=== PATIENT | female | born 1965 | race Caucasian/White ===

== ENCOUNTER 2024-05-09 14:22 | Outpatient (AMB) | payer MEDICARE, MEDICAID, SELFPAY ==
--- NOTE | 2024-05-09 14:11 | A.OFFPC_ITS ---
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 Requesting either pain medicaiton or referral to pain management. State Auditor Required: No Allergies gabapentin Allergy (Severe, Verified 05/09/24 14:29) forgetful topiramate Allergy (Severe, Verified 05/09/24 14:29) metabolic acidosis erythromycin base Allergy (Mild, Verified 05/09/24 14:29) Hives Medication List - Last Reconciled 05/09/24 by Leigh Shannon PA-C acetaminophen (Tylenol) 325 mg PO QID PRN clonazepam mg PO TID diphenhydramine HCl (Benadryl) 25 mg PO BID PRN fluoxetine 60 mg PO DAILY ibuprofen 200 mg PO Q6H PRN indomethacin 25 mg PO BID melatonin 3 mg PO BEDTIME PRN peg 3350-electrolytes 236-22.74-6.74 -5.86 gram (GaviLyte-G) mL PO DIRECTED sucralfate 1 g PO QID PRN temazepam mg PO BEDTIME Tobacco use date assessed: 05/09/24 Dental Screening Dental Screen Date: 05/09/24 Did you have a dental visit in the last 12 months?: No Did you have a dental problem in the last 6 months where you did not have access to dental care?: No Was dental information given to patient?: Patient declined (is changing dentists ) 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 She has many concerns today but her biggest concern is regarding pain management. Musculoskeletal: The patient has a complex history of chronic pain beginning in 2007 following major back surgery resulting in lumbar fusion. Subsequent surgeries include cervical fusion and surgeries on both thumbs with persistent osteoarthritis pain. She also had a spinal cord stimulator placed one year after her back surgery, and she reports a history of fibromyalgia. The patient had been maintained on [place] (hydrocodone/acetaminophen 10/325 mg) for pain 4 times a day, previously prescribed by Dr. Falcon, but she has been off this medication since March. The pain is significant, impacting daily living activities such as folding clothes and washing dishes, and is exacerbated by physical activity. She has experienced a deterioration of her relationship with her former primary care provider, Dr. Falcon, following missed appointments and a subsequent dispute regarding prescription refills. The patient's previous regimen of taking two tablets of [place] thrice daily was reportedly effective, and she attempted to stretch her prescriptions to last longer than dictated. In recent months, she has resorted to using high doses of Tylenol, resulting in significant frustration regarding pain management. GI: Reports a history of IBS and gerd and follows with Dr. Akers CV: has a history of POTS and orthostatic hypotension. Follows with Dr. Hdez. Pysch: Follows closely with behavioral health as she is managed with clonazepam, temazepam and fluoxetine. No SI / HI. Low-dose chest CT:The patient is motivated to address her nicotine use and has abstained from smoking for 72 hours prior to this visit. She acknowledges a history of smoking approximately a pack per day over 24 years and expresses int erest in lung cancer screening due to significant family history of lung cancer, and the recent of close family members. The patient also follows up on her risk for breast cancer, recalling her past treatment with tamoxifen and a breast neoplasm that was atypical. 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 Follows with Dr. Akers Health Maintenance - Discussed referral for lung cancer scr eening given significant smoking history and family history of lung cancer. - Planned [facility] for high-risk breast cancer management. - Referral considered for ENT and orthop edics. - Routine blood work including liver fun ction, kidney function, and electrolytes, cholesterol, and thyroid levels to be done. - Physical activity and lifestyle modifi cations encouraged. 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 - Significant life changes following inv oluntary unemployment since 2011. - Recently acquired personal transportat ion. - Reports housing environment contributi ng to daily antihistamine (Benadryl) use. - Reports nicotine use cessation efforts ; abstained from smoking for several days. - Family history of various cancers; emo tional impact from close familial deaths. Review of Systems - Musculoskeletal: Reports pain and cram ping in hands, neck, and back. - Gastrointestinal: Reports history of I rritable Bowel Syndrome. - Psychological: Reports anxiety and dep ressive disorders. - Respiratory: Reports congestion and st uffiness. Physical Exam General: Well developed, well nourished, in no acute distress. Appears stated age. Cardiac: RRR, no murmurs Lungs: clear, equal breath sounds Abdomen: soft, nontender, no CVA tenderness Extremities: no edema Neuro: alert, oriented x3, mood appropriate Plan - Initiate [place] hydrocodone/acetaminoph en 10/325 mg) at a reduced frequency of twice daily for chronic pain management to assess tolerance and efficacy. Discussed that I would not be comfortable increasing this. - Reinforce importance of medication com pliance and safety; limit acetaminophen intake to under 4000 mg per day to prevent potential liver damage. - Continue coordination with [facility] for ongoing evaluation of breast cancer risk and surveillance. - Conduct fasting blood work to evaluate liver and kidney function, complete blood count, metabolic panel, and thyroid function. - Referral for low-dose CT lung cancer s creening to address her smoking history and family cancer risk. - Continue psychiatric follow-up for anx iety and depressive disorders management, currently on clonazepam, fluoxetine, and temazepam. - Open discussion on further engagement with smoking cessation resources or pharmacotherapy options if needed. - Discussion of future follow-up appoint ment in 3-4 weeks for review of blood work results and reassessment of pain management plan. [facility] Surgical History (Updated 05/09/24 @ 15:05 by Leigh Shannon PA-C) History of back surgery Social History Housing: Apartment Patient Tobacco Use Status: Current someday Tobacco user (10 cigarettes a week) Years Smoked: 24 e-Cigarette/Vaping Use: Never Used Second Hand Smoke Exposure: Yes service: No Current occupational status: disabled Cognitive needs: No Hearing needs: No Vision needs: Yes (used to wear glasses, needs eyes checked.) Questionnaire Thrive Questionnaire Date Thrive assessed: 05/02/24 I am a: Patient What is your living situation today?: I have a place to live, but I am worried about losing it in the future Within the past 12 months, did the food you bought not last and you didn't have the money to get more?: Sometimes True Within the past 12 months, did you worry whether your food would run out before you got money to buy more?: Sometimes True Do you have trouble paying for medicines?: No Do you have trouble getting transportation to medical appointments?: No Do you have trouble paying your heating and electricity bill?: No Do you have trouble taking care of your child, family member or friend?: No Do you have trouble with day-to-day activities such as bathing, preparing meals, shopping, managing finances, etc.?: No Are you currently unemployed and looking for a job?: No Are you interested in more education?: No Please select the resources that you would like help with: Daily support THRIVE Score: 3 AUDIT C Alcohol Use Questionnaire (AUDIT-C) 1. How often do you have a drink containing alcohol?: Monthly or less 2. How many drinks containing alcohol do you have on a typical day when you are drinking?: 3 or 4 3. How often do you have six or more drinks on one occasion?: Never Total Score: 2 ROSHNI-7 AMB Questionnaire ROSHNI-7 Feeling nervous, anxious, or on edge: 1 = Several days Not being able to stop or control worryin = Several days Worrying too much about different things: 1 = Several days Trouble relaxin = Several days Being so restless that it is hard to sit still: 1 = Several days Becoming easily annoyed or irritable: 1 = Several days Feeling afraid as if something awful might happen: 1 = Several days Total ROSHNI-7 score (0-4 normal; 5-9 mild; 10-14 moderate; 15-21 severe): 7 Source: Developed by Drs. Mehul Chavira, Rosie Schwartz, Seng Muro and colleagues, with an educational adriano from [employer]. Physical exam (Primary Care) Tobacco/Smoking Status: Tobacco use Status Tobacco use date assessed 05/09/24 05/09/24 14:45 Patient Tobacco Use Status Current someday Tobacco (05/09/24 14:45 cigarettes a week) e-Cigarette/Vaping Use Never Used 05/09/24 14:45 Thrive Assessment: Date of Thrive Assessment Date Thrive assessed 05/02/24 05/09/24 14:12 Coding Level of Care Code New Pt Level 4 (83683) Complex EM visit Add On G2211 Diagnoses Generalized anxiety disorder with panic attacks F41.1; F41.0 Major depression, chronic F32.9 Tobacco abuse Z72.0 POTS (postural orthostatic tachycardia syndrome) G90.A Orthostatic hypotension I95.1 Chronic neck pain M54.2; G89.29 Chronic low back pain M54.50; G89.29 Dermatitis L30.9 Assessment & Plan Assessment & Plan (1) Generalized anxiety disorder with panic attacks: Code(s): F41.1 - Generalized anxiety disorder; F41.0 - Panic disorder [episodic paroxysmal anxiety] Category: Medical Plan: following with psychiatry (2) Major depression, chronic: Code(s): F32.9 - Major depressive disorder, single episode, unspecified Category: Medical Plan: as above (3) Tobacco abuse: Code(s): Z72.0 - Tobacco use Category: Medical Plan: recently quit low dose chest ct (4) POTS (postural orthostatic tachycardia syndrome): Code(s): G90.A - Postural orthostatic tachycardia syndrome [POTS] Category: Medical Plan: continue with cardiology (5) Orthostatic hypotension: Code(s): I95.1 - Orthostatic hypotension Category: Medical Plan: as above (6) Chronic neck pain: Code(s): M54.2 - Cervicalgia; G89.29 - Other chronic pain Category: Medical Plan: will continue norco (7) Chronic low back pain: Code(s): M54.50 - Low back pain, unspecified; G89.29 - Other chronic pain Category: Medical Plan: as above (8) Dermatitis: Code(s): L30.9 - Dermatitis, unspecified Category: Medical Plan . Orders: Orders Complete Blood Count Auto Diff Today F32.9 - Major depressive disorder, single episode, unspecified, F41.0 - Panic disorder [episodic paroxysmal anxiety], F41.1 - Generalized anxiety disorder, G89.29 - Other chronic pain, G90.A - Postural orthostatic tachycardia syndrome [POTS], I95.1 - Orthostatic hypotension, M54.2 - Cervicalgia, M54.50 - Low back pain, unspecified, Z72.0 - Tobacco use, Z98.1 - Arthrodesis status Comprehensive [place]. Panel Fast Today F32.9 - Major depressive disorder, single episode, unspecified, F41.0 - Panic disorder [episodic paroxysmal anxiety], F41.1 - Generalized anxiety disorder, G89.29 - Other chronic pain, G90.A - Postural orthostatic tachycardia syndrome [POTS], I95.1 - Orthostatic hypotension, M54.2 - Cervicalgia, M54.50 - Low back pain, unspecified, Z72.0 - Tobacco use, Z98.1 - Arthrodesis status TSH reflex Free T4 Today F32.9 - Major depressive disorder, single episode, unspecified, F41.0 - Panic disorder [episodic paroxysmal anxiety], F41.1 - Generalized anxiety disorder, G89.29 - Other chronic pain, G90.A - Postural orthostatic tachycardia syndrome [POTS], I95.1 - Orthostatic hypotension, M54.2 - Cervicalgia, M54.50 - Low back pain, unspecified, Z72.0 - Tobacco use, Z98.1 - Arthrodesis status Lipid Panel Today F32.9 - Major depressive disorder, single episode, unspecified, F41.0 - Panic disorder [episodic paroxysmal anxiety], F41.1 - Generalized anxiety disorder, G89.29 - Other chronic pain, G90.A - Postural orthostatic tachycardia syndrome [POTS], I95.1 - Orthostatic hypotension, M54.2 - Cervicalgia, M54.50 - Low back pain, unspecified, Z72.0 - Tobacco use, Z98.1 - Arthrodesis status Microalbumin, Random (w Creat) Today F32.9 - Major depressive disorder, single episode, unspecified, F41.0 - Panic disorder [episodic paroxysmal anxiety], F41.1 - Generalized anxiety disorder, G89.29 - Other chronic pain, G90.A - Postural orthostatic tachycardia syndrome [POTS], I95.1 - Orthostatic hypotension, M54.2 - Cervicalgia, M54.50 - Low back pain, unspecified, Z72.0 - Tobacco use, Z98.1 - Arthrodesis status Referrals Thoracic/General Surgery Referral F17.200 - Nicotine dependence, unspecified, uncomplicated, Z80.1 - Family history of malignant neoplasm of trachea, bronchus and lung Dermatology Referral L30.9 - Dermatitis, unspecified Medications: New hydrocodone-acetaminophen 10-325 mg Partial Fill upon patient request. 1 tab PO Q12H 28 days PRN 56 tabs 0RF pain
[2024-05-09 16:01] VITALS: BP 96/54; PULSE 83; RESP 12; O2SAT 98; BMI 23.8
--- OUTSIDE RECORDS SUMMARY | 2024-05-09 17:31 | XMS_ITS | Clinical Summary ---
Author Organization [facility] Address [address] [place] [id number] Care Team Providers Care Planer Setter Name Role Phone Miriam Falcon MD Primary Care Provider Social History Tobacco Use Types Packs/Day Years Used Date Smoking Tobacco: Never Assessed Sex and Gender Information Value Date Recorded Sex Assigned at Female 02/27/2023 9:54 AM EST Gender Identity Female 02/27/2023 9:54 AM EST Sexual Orientation Heterosexual (straight) 02/27 9:54 AM EST Plan of Treatment Health Maintenance Due Date Last Done Comments Hepatitis C Virus Screening 1965 HIV Screening 07/31/1980 DTaP/Tdap/Td Vaccines (1 - Tdap) 07/31/1986 Hepatitis B Vaccines (1 of 3 - 19+ 3-dose series) 07/31/1986 Pneumococcal Vaccines 50+ (1 of 1 - PCV) 07/31/2017 Zoster (Shingles) Vaccine (1 of 2) 07/31/2017 COVID-19 Vaccine ( - 2023-2 5 season) 2023 Pneumococcal Vaccine: Pediat jagruti (0-5 Years) and At-Risk Patients (6 to 49 Years) Aged Out No longer eligible b ased on patient's age to complete this topic Care Teams Planer Setter Relationship Specialty Start Date End Date Miriam Falcon MD [address] [place] [id number] PCP - General Medicine Hospitalist 04/13/23
--- OUTSIDE RECORDS SUMMARY | 2024-05-09 17:31 | XMS_ITS | Clinical Summary ---
Author Organization [facility] Address [address] [place] [address] Care Team Providers Care Director Supply Chain Name Role Phone Fred Falcon MD Primary Care Provider [phone] Encounters Date Type Department Care Team Description 02/13/2024 Telephone Gastroenterology - [address] [place] [address] Adry Iverson PA scheduling capsule endoscopy from Last 3 Months Social History Tobacco Use Types Packs/Day Years Used Date Smoking Tobacco: Never Assessed Comments Unknown Sex and Gender Information Value Date Recorded Sex Assigned at Not on file Legal Sex Female 2:46 PM EST Gender Identity Not on file Sexual Orientation Not on file Plan of Treatment Health Maintenance Due Date Last Done Comments Breast Cancer Screening 1965 DTaP,Tdap,and Td Vaccines (1 - Tdap) 07/31/1986 Hepatitis B Vaccines (1 of 3 - 19+ 3-dose series) 07/31/1986 Cervical Cancer Screening: P ap Smear 07/31/1988 Pneumococcal Vaccine: 50+ Ye ars (1 of 1 - PCV) 07/31/2017 Zoster Vaccines (1 of 2) 07/31/2017 Colorectal Cancer Screening: Colonoscopy 02/09/2022 Depression Screening 02/09/2022 HIV Screening 02/09/2022 Hepatitis C Screening 02/09/2022 Social Influencers of Health Screening 02/09/2022 COVID-19 Vaccine ( - 2023-2 5 season) 2023 Influenza Vaccine (#1) 2023 HIB Vaccines Aged Out No longer eligi ble based on patient's age to complete this topic HPV Vaccines Aged Out No longer eligi ble based on patient's age to complete this topic Hepatitis A Vaccines Aged Out No long er eligible based on patient's age to complete this topic IPV Vaccines Aged Out No longer eligi ble based on patient's age to complete this topic MMR Vaccines Aged Out No longer eligi ble based on patient's age to complete this topic Meningococcal ACWY Vaccine Aged Out N o longer eligible based on patient's age to complete this topic Meningococcal B Vacine Aged Out No lo nger eligible based on patient's age to complete this topic Pneumococcal Vaccine: Pediat rics (0 to 5 Years) and At-Risk Patients (6 to 64 Years) Aged Out No longer eligible b ased on patient's age to complete this topic RSV Immunization Patients Un jourdan 20 months Aged Out No longer eligible b ased on patient's age to complete this topic Varicella Vaccines Aged Out No longer eligible based on patient's age to complete this topic Care Teams Director Supply Chain Relationship Specialty Start Date End Date Fred Falcon MD PCP - General Internal Medicine 05/11/20
--- OUTSIDE RECORDS SUMMARY | 2024-05-09 17:31 | XMS_ITS ---
Author Name [facility] Organization Unknown Problems Problem Status Onset Date Problem Type Date of Resoluti on Source POTS (postural orthostatic tachycardia syndrome) active EncounterDiagnosisAct CCT
== END 2024-05-09 15:38 | disposition home or self-care (01) ==
PROVIDERS: PCP Physician Assistant; Visit Provider Physician Assistant
DX: F41.1 Generalized anxiety disorder (principal); F41.0 Panic disorder [episodic paroxysmal anxiety]; F32.9 Major depressive disorder, single episode, unspecified; Z72.0 Tobacco use; G90.A Postural orthostatic tachycardia syndrome [POTS]; I95.1 Orthostatic hypotension; M54.2 Cervicalgia; G89.29 Other chronic pain; M54.50 Low back pain, unspecified; L30.9 Dermatitis, unspecified

== ENCOUNTER → 2024-05-09 14:22 | Outpatient (BNVA) | payer MEDICARE, MEDICAID, SELFPAY | PROVIDERS: PCP Physician Assistant; Visit Provider Physician Assistant | DX: F41.1 Generalized anxiety disorder (principal); F41.0 Panic disorder [episodic paroxysmal anxiety]; F32.9 Major depressive disorder, single episode, unspecified; G90.A Postural orthostatic tachycardia syndrome [POTS]; I95.1 Orthostatic hypotension; M54.2 Cervicalgia; G89.29 Other chronic pain; M54.50 Low back pain, unspecified; L30.9 Dermatitis, unspecified; Z72.0 Tobacco use | CPT/HCPCS: 99202 ==

== ENCOUNTER 2024-06-06 10:47 | Outpatient (AMB) | payer MEDICARE, MEDICAID, SELFPAY ==
--- NOTE | 2024-06-06 10:49 | A.OFFPC_ITS ---
Vital Signs 06/06/24 10:52 BP 96/68 Blood Pressure Location Rt brachial Position Sitting Respiration 14 Pulse 98 Pulse Source Pulse Oximeter Pulse Oximetry (%) 100 Oxygen Delivery Method Room Air Intake Visit Reasons: csc, lab follow up Intake Note: Follow up. Was not able to get lab work. Automation Developer Required: No Allergies gabapentin Allergy (Severe, Verified 06/06/24 10:51) forgetful topiramate Allergy (Severe, Verified 06/06/24 10:51) metabolic acidosis erythromycin base Allergy (Mild, Verified 06/06/24 10:51) Hives Medication List - Last Reconciled 06/06/24 by Leigh Shannon PA-C acetaminophen (Tylenol) 325 mg PO QID PRN clonazepam mg PO TID diphenhydramine HCl (Benadryl) 25 mg PO BID PRN fluoxetine 60 mg PO DAILY hydrocodone-acetaminophen 10-325 mg 1 tab PO Q12H PRN 28 days ibuprofen 200 mg PO Q6H PRN indomethacin 25 mg PO BID melatonin 3 mg PO BEDTIME PRN peg 3350-electrolytes 236-22.74-6.74 -5.86 gram (GaviLyte-G) mL PO DIRECTED sucralfate 1 g PO QID PRN temazepam mg PO BEDTIME Tobacco use date assessed: 05/09/24 Dental Screening Dental Screen Date: 05/09/24 HPI csc, lab follow up HPI Details The patient is a 58-year-old female presenting today for a follow up. She is relatively new here. -forgot to do labs prior to appointment. States that she will do this today. Musculoskeletal: The patient has a complex history of chronic pain beginning in 2007 following major back surgery resulting in lumbar fusion. Subsequent surgeries include cervical fusion and surgeries on both thumbs with persistent osteoarthritis pain. She also had a spinal cord stimulator placed one year after her back surgery, and she reports a history of fibromyalgia. The patient had been maintained on Secondcreek (hydrocodone/acetaminophen 10/325 mg) for pain 4 times a day, previously prescribed by Dr. Falcon, but she has been off this medication since March. The pain is significant, impacting daily living activities such as folding clothes and washing dishes, and is exacerbated by physical activity. She has experienced a deterioration of her relationship with her former primary care provider, Dr. Falcon, following missed appointments and a subsequent dispute regarding prescription refills. The patient's previous regimen of taking two tablets of Secondcreek thrice daily was reportedly effective, and she attempted to stretch her prescriptions to last longer than dictated. In recent months, she has resorted to using high doses of Tylenol, resulting in significant frustration regarding pain management. GI: Reports a history of IBS and gerd and follows with Dr. Akers CV: has a history of POTS and orthostatic hypotension. Follows with Dr. Hdez. Pysch: Follows closely with behavioral health as she is managed with clonazepam, temazepam and fluoxetine. No SI / HI. Dealing with a lot of stress right now. Her 22 year old son is currently missing in [place]. She states he has gone off grid for 3 weeks but he has had no communication. She states that he has bipolar disorder and this is not necessarily uncommon for him but it is still worries for that she has not heard from him. Low-dose chest CT: Ordered at last visit. She acknowledges a history of smoking approximately a pack per day over 24 years and expresses interest in lung cancer screening due to significant family history of lung cancer Mammogram: Following with breast center and up-to-date- The patient also follows up on her risk for breast cancer, recalling her past treatment with tamoxifen and a breast neoplasm that was atypical. 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 colonoscopy: Completed in January 2024 and states WNL. Follows with Dr. Akers Bone density: ordered today [facility] Surgical History (Updated 05/09/24 @ 15:05 by Leigh Shannon PA-C) History of back surgery Social History Housing: Apartment Patient Tobacco Use Status: Current someday Tobacco user (10 cigarettes a week) Years Smoked: 24 e-Cigarette/Vaping Use: Never Used Second Hand Smoke Exposure: Yes service: No Current occupational status: disabled Cognitive needs: No Hearing needs: No Vision needs: Yes (used to wear glasses, needs eyes checked.) Questionnaire Thrive Questionnaire Date Thrive assessed: 05/02/24 I am a: Patient What is your living situation today?: I have a place to live, but I am worried about losing it in the future Within the past 12 months, did the food you bought not last and you didn't have the money to get more?: Sometimes True Within the past 12 months, did you worry whether your food would run out before you got money to buy more?: Sometimes True Do you have trouble paying for medicines?: No Do you have trouble getting transportation to medical appointments?: No Do you have trouble paying your heating and electricity bill?: No Do you have trouble taking care of your child, family member or friend?: No Do you have trouble with day-to-day activities such as bathing, preparing meals, shopping, managing finances, etc.?: No Are you currently unemployed and looking for a job?: No Are you interested in more education?: No Please select the resources that you would like help with: Daily support THRIVE Score: 3 Physical exam (Primary Care) Vital Signs: Last Vital Signs Pulse 98 06/06/24 10:52 Resp 14 06/06/24 10:52 BP 96/68 06/06/24 10:52 Pulse Ox 100 06/06/24 10:52 Oxygen Delivery Method Room Air 06/06/24 10:52 Tobacco/Smoking Status: Tobacco use Status Tobacco use date assessed 05/09/24 06/06/24 10:55 Patient Tobacco Use Status Current someday Tobacco (06/06/24 10:55 cigarettes a week) e-Cigarette/Vaping Use Never Used 06/06/24 10:55 Thrive Assessment: Date of Thrive Assessment Date Thrive assessed 05/02/24 06/06/24 10:55 Const Orientation/consciousness: patient oriented x3 HENMT Ears: hearing grossly normal bilaterally Neck Thyroid: Thyroid normal Lymphatic: no lymphadenopathy noted Resp Auscultation: clear to auscultation bilaterally Cardio Rate: regular rate Rhythm: regular rhythm Heart sounds: S1 normal heart sound present and S2 normal heart sound present GI Inspection: Yes normal to inspection Palpation (GI): Soft to palpation and Other GI palpation findings present (nontender, no cva tenderness) Auscultation: normoactive bowel sounds Rectal Exam - Female: deferred Skin General skin exam: no rashes or lesions noted Neuro General: patient oriented x3, gait normal and no focal motor deficits Coding Level of Care Code Est Pt Level 4 (74565) Complex EM visit Add On G2211 Diagnoses Chronic neck pain M54.2; G89.29 Chronic low back pain M54.50; G89.29 Tobacco abuse Z72.0 Generalized anxiety disorder with panic attacks F41.1; F41.0 Assessment & Plan Assessment & Plan (1) Chronic neck pain: Code(s): M54.2 - Cervicalgia; G89.29 - Other chronic pain Category: Medical Plan: We will continue the Secondcreek 3 times a day. Controlled substance contract signed today. Mass pat reviewed. (2) Chronic low back pain: Code(s): M54.50 - Low back pain, unspecified; G89.29 - Other chronic pain Category: Medical Plan: As above. Referral to pain management. (3) Tobacco abuse: Code(s): Z72.0 - Tobacco use Category: Medical Plan: She has quit smoking for one-month now. Doing well with this. Has not yet heard from the low-dose CT scan screening program (4) Generalized anxiety disorder with panic attacks: Code(s): F41.1 - Generalized anxiety disorder; F41.0 - Panic disorder [episodic paroxysmal anxiety] Category: Medical Plan: A little exacerbated but overall stable. following with her psychiatrist tomorrow. Orders: Orders XR DEXA axial skeleton Today N95.1 - Menopausal and female climacteric states Referrals Pain Management Referral G89.29 - Other chronic pain, M54.2 - Cervicalgia, M54.50 - Low back pain, unspecified Medications: Changed From hydrocodone-acetaminophen 10-325 mg Partial Fill upon patient request. 1 tab PO Q12H 28 days PRN 56 tabs 0RF pain To hydrocodone-acetaminophen 10-325 mg Partial Fill upon patient request. 1 tab PO Q8H 28 days PRN 84 tabs 0RF pain
[2024-06-06 10:52] VITALS: BP 96/68; PULSE 98; RESP 14; O2SAT 100
--- OUTSIDE RECORDS SUMMARY | 2024-06-06 14:21 | XMS_ITS | Clinical Summary ---
Author Organization [facility] Address [address] [place] [id number] Care Team Providers Care Cake Maker Name Role Phone Miriam Falcon MD Primary [...] age to complete this topic Care Teams Cake Maker Relationship Specialty Start Date End Date Miriam Falcon MD [address] [place] [id number] PCP - General Medicine Hospitalist 04/13/23
--- OUTSIDE RECORDS SUMMARY | 2024-06-06 14:21 | XMS_ITS | Clinical Summary ---
Author Organization [employer] [facility] ity Address [address] [place] [address] Care Team Providers Care Belt Loop Machine Operator Name Role Phone Fred Falcon MD Primary Care Provider [phone] Social History Tobacco Use Types Packs/Day Years [...] age to complete this topic Care Teams Belt Loop Machine Operator Relationship Specialty Start Date End Date Fred Falcon MD PCP - General Internal Medicine 05/11/20
== END 2024-06-06 11:22 | disposition home or self-care (01) ==
LOC: HO.HMCFM 10:48
PROVIDERS: PCP Physician Assistant; Visit Provider Physician Assistant
DX: M54.2 Cervicalgia (principal); G89.29 Other chronic pain; M54.50 Low back pain, unspecified; Z72.0 Tobacco use; F41.1 Generalized anxiety disorder; F41.0 Panic disorder [episodic paroxysmal anxiety]

== ENCOUNTER → 2024-06-06 10:47 | Outpatient (BNVA) | payer MEDICARE, MEDICAID, SELFPAY | PROVIDERS: PCP Physician Assistant; Visit Provider Physician Assistant | DX: M54.2 Cervicalgia (principal); M54.50 Low back pain, unspecified; G89.29 Other chronic pain; F41.1 Generalized anxiety disorder; F41.0 Panic disorder [episodic paroxysmal anxiety]; Z79.891 Long term (current) use of opiate analgesic; Z72.0 Tobacco use | CPT/HCPCS: 99212 ==

== ENCOUNTER 2024-06-06 11:35 | Outpatient (REF) | payer MEDICARE, MEDICAID, SELFPAY ==
[2024-06-06 14:09] LABS: MANUAL DIFF FLAG NO
[2024-06-06 14:15] LABS: Basophils Percent Auto 0.6 % (0-2); Eosinophils Percent Auto 0.4 % (0-4); Hematocrit 41.7 % (37.0-47.0); Hemoglobin 14.2 g/dl (12.0-16.0); Imm Gran Abs Auto 0.03 X10*3/uL (0.00-0.03); Imm Gran Pct Auto 0.4 % (0.0-0.4); Lymphocytes Absolute Auto 1.4 X10*3/uL (1.2-4.9); Lymphocytes Percent Auto 20.1 % (20-40); Mean Corpuscular HGB Conc 34.1 g/dl (31.0-35.0); Mean Corpuscular Hemoglobin 31.6 pg (27.0-33.0); Mean Corpuscular Volume 92.9 fL (80.0-98.0); Mean Platelet Volume 10.2 fL (9.4-12.3); Monocytes Absolute Auto 0.4 X10*3/uL (0.1-1.2); Monocytes Percent Auto 6.3 % (2-11); Neutrophils Absolute Auto 5.1 x10*3/uL (2.0-8.3); Neutrophils Percent Auto 72.2 % (45-73); Platelet Count 251 X10*3/uL (160-400); Red Blood Count 4.49 X10*6/uL (4.20-5.50)
[2024-06-06 14:44] LABS: Alanine Aminotransferase 20 U/L (0-31); Albumin Level 4.3 g/dL (3.5-5.0); Alkaline Phosphatase 84 U/L (39-117); Anion Gap 11 (12-20); Aspartate Amino Transferase 22 U/L (5-31); Bilirubin Total 0.5 mg/dL (0.0-1.0); Blood Urea Nitrogen 18 mg/dL (9-16); Carbon Dioxide 22 mmol/L (22-29); Chloride 113 mmol/L (96-108); Cholesterol 265 mg/dL (<200); Estimated Glomerular Filt Rate > 60; Glucose Fasting 91 mg/dL (60-99); HDL Cholesterol 91 mg/dL (>40); LDL Cholesterol Calculated 141 mg/dL (<100); Potassium 3.5 mmol/L (3.3-5.1); Sodium 142 mmol/L (135-145); TSH reflex Free T4 2.46 uIU/mL (0.32-4.0); Total Protein 6.8 g/dL (6.5-8.0); Triglycerides 168 mg/dL (<150)
== END 2024-06-06 11:36 | disposition home or self-care (01) ==
LOC: HO.WFDLDS 11:35
PROVIDERS: Visit Provider Physician Assistant
DX: M54.2 Cervicalgia (principal); M54.50 Low back pain, unspecified; G89.29 Other chronic pain; F41.1 Generalized anxiety disorder; F41.0 Panic disorder [episodic paroxysmal anxiety]; Z72.0 Tobacco use; Z79.891 Long term (current) use of opiate analgesic; F32.9 Major depressive disorder, single episode, unspecified; G90.A Postural orthostatic tachycardia syndrome [POTS]; I95.1 Orthostatic hypotension; Z98.1 Arthrodesis status
CPT/HCPCS: 36415; 80053; 80061; 84443; 85025; 99212

== ENCOUNTER 2024-07-17 13:29 | Outpatient (REF) | payer MEDICARE, MEDICAID, SELFPAY ==
--- NOTE | ~2024-07-17 | MM_ITS ---
EXAMINATION: DXA BONE DENSITY AXIAL HISTORY: N95.1 - Menopausal and female climacteric states TECHNIQUE: [employer] Dual energy absorptiometry (DEXA) of the lumbar spine, total left hip, and femoral neck was performed. COMPARISON: There are no prior studies for comparison. FINDINGS: The bone mineral density of the lumbar spine is 1.340 with a T-score of 1.2, and a Z-score of 2.1. This is indicative of normal bone mineral density. The bone mineral density of the left total hip is 0.925 with a T-score of -0.7, and a Z-score of 0.1. This is indicative of normal bone mineral density. The bone mineral density of the left femoral neck is 0.924 with a T-score of -0.8, and a Z-score of 0.3. This is indicative of normal bone mineral density. FRACTURE RISK: The FRAX index suggests a risk of major osteoporotic fracture of 56%, and of hip fracture 0.4%. MM/XR DEXA axial skeleton IMPRESSION: Based on bone mineral density, and according to World Health Organization (WHO) criteria, the diagnosis is consistent with normal bone mineral density. All bone density values are in grams per centimeter squared (g/cm2). Statistically, 68% of repeat scans fall within 1 SD (+/- 0.010 g/cm2 for AP spine L1-L4) and 1 SD (+/- 0.012 g/cm2 for femur total) FRAX is a trademark of the [employer] [facility] [employer], a World Health Organization (WHO) Collaborating Center. Electronically signed by: Mehul Reardon MD 07/17/2024 02:31 PM EDT
--- OUTSIDE RECORDS SUMMARY | 2024-07-17 14:45 | XMS_ITS | Clinical Summary ---
Author Organization [facility] Address [address] [place] [address] Care Team Providers Care Truck Sales Representative Name Role Phone Miriam Falcon MD Primary Care Provider Jude lin Social History Tobacco Use Types Packs/Day Years Used Date Smoking Tobacco: Never Assessed Comments Unknown Sex and Gender Information Value Date Recorded Sex Assigned at Female 02/27/2023 9:54 AM EST Legal Sex Female 1:46 PM EDT Gender Identity Female 02/27/2023 9:54 AM EST Sexual Orientation Heterosexual (straight) 02/27 9:54 AM EST Plan of Treatment Health Maintenance Due Date Last Done Comments Hepatitis C Virus Screening 1965 HIV Screening 07/31/1980 DTaP/Tdap/Td Vaccines (1 - Tdap) 07/31/1986 Hepatitis B Vaccines (1 of 3 - 19+ 3-dose series) 07/12 Pneumococcal Vaccines 50+ (1 of 1 - PCV) 07/31/2017 Zoster (Shingles) Vaccine (1 of 2) 07/31/2017 COVID-19 Vaccine ( - season) 2023 Care Teams Truck Sales Representative Relationship Specialty Start Date End Date Miriam Falcon MD PCP - General Medicine Hospitalist 04/13/23
--- OUTSIDE RECORDS SUMMARY | 2024-07-17 14:45 | XMS_ITS | Clinical Summary ---
Author Organization [facility] [facility] ity Address [address] [place] [address] Care Team Providers Care Clinical Documentation Consultant Name Role Phone Fred Falcon MD Primary Care Provider [phone] Social History Tobacco Use Types Packs/Day Years [...] - 2023-2 5 season) 2023 Influenza Vaccine (Season Ended) 2024 HIB Vaccines Aged Out No longer eligi [...] age to complete this topic Meningococcal B Vaccine Aged Out No l onger eligible based on patient's age to complete [...] age to complete this topic Care Teams Clinical Documentation Consultant Relationship Specialty Start Date End Date Fred Falcon MD PCP - General Internal Medicine 05/11/20
--- OUTSIDE RECORDS SUMMARY | 2024-07-17 14:45 | XMS_ITS | Data Portability ---
Author Organization [place] [facility] Address [address] [facility] [address] [place] [address] Care Team Providers Care Chief Nurse Executive Name Role Phone MARY KELLEY OTHER Assessment Encounter Date Assessment Date Assessment LastModified by Organization Details LastModified Time 07/04/2024 07/04/2024 Follow up with referring provider. [email or web address] Not available 07/04/2024 14:02:14 07/04/2024 07/04/2024 The patient's history, physical exam and audiometric findings are consistent with vestibular migraine (migraine associated dizziness). No signs of inner ear anomalies or pathology. Audiometric testing shows excellent hearing bilaterally. Today we discussed the pathophysiology of migraine and migraine associated phenomena such as dizziness and visual aura. We discussed how the patient's balance disturbance symptoms are likely mediated by a central processing abnormality rather than an isolated inner ear abnormality. I gave the patient a significant amount of literature to review at home regarding how there are many environmental and dietary triggers that can lead to not only migraine headaches but balance disturbance symptoms as well. We spent a lot of time discussing the importance of following a migraine diet. We have offered the patient a copy of the Heal Your Headache book to read at home, which gives a [id number] discussion on what causes migraine and how to make the necessary lifestyle and dietary changes to significantly reduce or eliminate migraine symptoms. I have also recommended the use of dietary supplements magnesium, vitamin B2 and feverfew which have been shown to help control migrainous phenomena. We discussed dosage and schedule for these supplements. We discussed alternative of using Migranol, which contains a combination of magnesium, vitamin B2, and feverfew. Patient will continue to follow-up with her outdoor education teacher for her POTS syndrome. Follow up: As needed Not available 07/04/2024 14:46:30 Plan of Treatment Reminders Order Date Submit Date Provider Last Modified By Organization Details Last Modified Time Details Appointments None record ed. Lab None record ed. Referral None record ed. Procedures None record ed. Surgeries None record ed. Imaging None record ed. Medication Orders None record ed. Patient TargetsNo targets recorded. Patient InstructionsNo instructions recorded. Reason for Referral None Reported. Results Created Date Observation Date Name Description Value Unit Range Abnormal Flag Note LastModifiedBy Organization Detail LastModifiedTime 07/05/19 25 audio gram No observ ation record ed. BARCODE Not Available 2024 17:21:00 Result Notes None recorded. Problems Name Problem SNOMED Code Status Onset Date Resolution Date Notes Provider Name and Address Organization Details Recorded Time Bilateral tinnitus 0970432887148 Active 2024 Raquel brenner [place] - [facility] 5 14:02:01 Tinnitus of left ear 6080644930725 Active 2024 Raquel brenner [place] - [facility] 5 14:02:01 Tinnitus of right ear 9564071454674 Active 2024 Raquel brenner [place] - [facility] 5 14:02:01 Dizziness and giddiness 384420442 Active 2024 Raquel brenner [place] - [facility] 5 14:02:09 Sensorineur al hearing loss of bilateral ears 592140378 Active 2024 Raquel brenner [place] - [facility] 5 14:02:15 Abnormal auditory perception 48075868 Active 2024 Raquel brenner [place] - [facility] 5 14:02:43 Migraine with aura 1425095 Active 2024 NADJA GLASER MD [address] [address], [place], [phone] [place] [address] - [facility] 5 14:39:16 Vertigo of central origin 47345433 Active 2024 NADJA GLASER MD [address] [place] [address], [place], [address], [facility] - [facility] 14:39:16 Problem Notes None recorded. Procedures Surgical History Date Name Laterality Status Provider Name and Address Organization Details Recorded Time 07/05/19 25 Comp Audio with Tymps - 65535 & 28923 completed Raquel Lara [place] - [facility] 07/04/2024 14:02:00 biopsy of breast completed Nay Dennis [facility] 07/04/2024 14:15:00 Cervical laminoplsty 2/> seg completed Nay Dennis [facility] 07/04/2024 14:15:25 loop electrosurgical excision procedure completed Nay Dennis [place] [facility] 07/04/2024 14:15:35 discectomy of spine completed Nay Dennis [facility] 07/04/2024 14:15:44 Oral surgery procedure completed Nay Dennis [place] [facility] 07/04/2024 14:15:55 Tonsillectomy completed Nay Dennis [facility] 07/04/2024 14:16:10 Imaging Results Imaging Date Name Status LastModified by Organiz ation Details LastModified Time 07/04/2024 audiogram completed BARCODE Information no t available 07/04/2024 17:21:00 Procedure Notes None recorded. Medical Equipment None Reported. Allergies Allergen ID Allergen Name Allergen Category Reaction Reaction Severity Criticality Documentation Date Start Date Code Code System Note Provider Name and Address Organization Details Recorded Time 660806 erythromy cecy medicatio n Not available Not available Not available 07/04/2024 4053 RxNorm Nay brenner [place] - [facility] 14:14:08 336675 gabapenti n medicatio n Not available Not available Not available 07/04/2024 18898 RxNorm Nay brenner [facility] 14:14:15 251126 topiramat e medicatio n Not available Not available Not available 07/04/2024 84769 RxNorm Nay brenner [facility] 14:14:21 Medications Name Sig Start Date Stop Date Status Note LastModified by Organization Details LastModified Time hydrocodone 5 mg-acetamin ophen 325 mg tablet TAKE ONE TABLET BY MOUTH EVERY DAY NEEDED 07/04 completed Not Available Not Available Not Available clonazepam 1 mg tablet 1 mg 3 times a day by oral route. active Not Available Not Available No t Available hydrocodone 10 mg-acetamin ophen 325 mg tablet TAKE ONE TABLET BY MOUTH EVERY 8 HOURS NEEDED FOR PAIN active Not Available Not Available No t Available temazepam 30 mg capsule 30 mg every day by oral route. active Not Available Not Available No t Available fluoxetine 20 mg capsule TAKE THREE CAPSULES BY MOUTH EVERY DAY active Not Available Not Available No t Available GaviLyte-G 236 gram-22.74 gram-6.74 gram-5.86 gram oral solution MIX AND DRINK 8 OUNCES BY MOUTH DIRECTED. DRINK A GLASS EVERY 10 TO 15 MINUTES 07/04 completed Not Available Not Available Not Available Vitals Date Recorded Body height Body weight Provider Name and Address Organization Details Last Updated DateTime 07/04/2024 170.18 cm 68545.12 g Nay Dennis [place] - [facility] 07/04/2024 14:20:37 Social History None recorded. Functional Status None recorded. Mental Status None recorded. Family History Nothing Reported. Medical History Condition Response Arthritis Y Headaches Y Fibromyalgia Y Anxiety Y Depression Y Gynecological HistoryNo gynecological history recorded. Obstetrics History GPAL:G 0 P 0 0 0 0 Past Encounters Encounter ID Performer Location Encounter Start Date Encounter Closed Date Diagnosis/Indication Diagnosis SNOMED-CT Code Diagnosis ICD10 Code Diagnosis Note [id number] NADJA GLASER MD [facility] [address] [address] 07/04/2024 13:18:41 07/04/2024 16:03:42 Vertigo of central origin 67048756 H81.4 Migraine with aura 74548 06 G43.109 [id number] ZENA PARIS [place], [facility] [address] [address] 07/04/2024 14:01:43 07/05/2024 08:23:30 Abnormal auditory perception 42019300 H93.299 Audiologic al evaluation results: Right ear: {{Normal* Normal through 2 kHz Mild M oderate Mo derately-s evere Leda re Profoun d}} {{hearing* hearing. sloping to a mild slopi ng to a moderate s loping to moderately severe slo ping to severe slo ping to profound f lat high frequency low frequency mid frequency cookie bite bucio curve}} {{with* se nsorineura l hearing loss with condu ctive hearing loss with mixed hearing loss with}} {{excellen t* good fa ir poor no measurable }} word recognitio n. Left ear: {{Normal* Normal through 2 kHz Mild M oderate Mo derately-s evere Leda re Profoun d}} {{hearing* hearing. sloping to a mild slopi ng to a moderate s loping to moderately severe slo ping to severe slo ping to profound f lat high frequency low frequency mid frequency cookie bite bucio curve}} {{with* se nsorineura l hearing loss with condu ctive hearing loss with mixed hearing loss with}} {{excellen t* good fa ir poor no measurable }} word recognitio n. Tympanomet ry: Right Ear:{{Type A* Type A with rounded peak Type A with double peak Type As Type As with rounded peak Type Ad Type C Type C, shallow & rounded peak Type B Type B with large volume Cou ld not maintain a hermetic seal}} Left Ear:{{Type A* Type A with rounded peak Type A with double peak Type As Type As with rounded peak Type Ad Type C Type C, shallow & rounded peak Type B Type B with large volume Cou ld not maintain a hermetic seal}} Health Concerns Section Related Observation LastModified by Organization Detai ls LastModified Time None Recorded Concern Status LastModified by Organization Details LastModified Time None Recorded Advance Directives Directive None Recorded Payers Insurance Date Sequence Insurance Name Policy Number Policy Dash Covered Member ID Dash Member ID Guarantor Name 07/04/2024 2 [place] [facility] Sylvia Leung [id number] Sylvia Leung 07/04/2024 1 [place]IC[place] B[place] [employer] Sylvia Leung [id number] Sylvia Leung Notes Date Note Type Note Provider Name and Address Organization Details Recorded Time 07/04/2024 text/html 58-year-old simon desai with fibromyalgia and multiple orthopedic/spine surgeries comes in for evaluation of balance. She has history of neuropathic pain of her lower extremities. Patient referred by her outdoor education teacher for assessment to see if any of her balance issues were related to her inner ears. Patient reports that she suffers from POTS with associated recurrent syncope. She reports that she will have episodes where she is standing and doing the dishes, then she will suddenly feel lightheaded, have a wave of nausea and tinnitus. She will sit down and check her blood pressure and she will note that it is very low. She does not really think she has true spinning sensation. She has fairly severe headaches 3-4 times a month associated with visual disturbance and scotoma consistent with visual migraine aura. She has chronic light sensitivity and noise sensitivity. She has had lifelong problems with motion sensitivity. She has had history of icepick headaches in the past, but not currently. Patient does notice occasional changes in her hearing which does not last more than a minute or 2. NADJA GLASER MD [address] [place] [address], [phone], [place] - [facility] 07/04/2024 14:46:43 OBGyn Episode No OBEpisode recorded.
== END 2024-07-17 13:30 | disposition home or self-care (01) ==
LOC: HO.MAMMO 13:29
PROVIDERS: PCP Physician Assistant; Visit Provider Physician Assistant
DX: Z13.820 Encounter for screening for osteoporosis (principal); Z78.0 Asymptomatic menopausal state; M85.80 Other specified disorders of bone density and structure, unspecified site
CPT/HCPCS: 77080

== ENCOUNTER → 2024-07-17 13:30 | Outpatient (BNV) | payer MEDICARE, MEDICAID, SELFPAY | PROVIDERS: PCP Physician Assistant; Visit Provider Radiology Diagnostic Radiology | DX: E28.39 Other primary ovarian failure (principal) | CPT/HCPCS: 77080 ==

== ENCOUNTER 2024-09-12 10:55 | Outpatient (AMB) | payer MEDICARE, MEDICAID, SELFPAY ==
--- NOTE | 2024-09-12 11:02 | MHC.PC.OV ---
Vital Signs 09/12/24 11:09 Height 4 ft 9.6 in Weight 144 lb 8 oz BMI 30.6 BP 102/74 Blood Pressure Location Rt brachial Position Sitting Respiration 12 Pulse 72 Pulse Source Pulse Oximeter Pulse Oximetry (%) 98 Oxygen Delivery Method Room Air Intake Visit Reasons: Meds Intake Note: Medication follow up. Rolled right ankle a couple weeks ago. Has no feeling in calf area. Interested in taking medication to quit smoking. 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 Musculoskeletal: Right ankle sprain 2 weeks ago. She was walking outside and tripped going walking up an incline outside. States the ankle is getting better. She has been resting, elevating, and using ibuprofen. She denies any bruising or swelling. She is walking in supportive footwear. The patient has a complex history of chronic pain beginning in 2007 following major back surgery resulting in lumbar fusion. Subsequent surgeries include cervical fusion and surgeries on both thumbs with persistent osteoarthritis pain. She also had a spinal cord stimulator placed one year after her back surgery, and she reports a history of fibromyalgia. The patient had been maintained on Elaine (hydrocodone/acetaminophen 10/325 mg) for pain 4 times a day, previously prescribed by Dr. Falcon, but she has been off this medication since March. The pain is significant, impacting daily living activities such as folding clothes and washing dishes, and is exacerbated by physical activity. She has experienced a deterioration of her relationship with her former primary care provider, Dr. Falcon, following missed appointments and a subsequent dispute regarding prescription refills. The patient's previous regimen of taking two tablets of Elaine thrice daily was reportedly effective, and she attempted to stretch her prescriptions to last longer than dictated. In recent months, she has resorted to using high doses of Tylenol, resulting in significant frustration regarding pain management. GI: Reports a history of IBS and gerd and follows with Dr. Akers CV: has a history of POTS and orthostatic hypotension. Follows with Dr. Hdez. Last labs showed elevated cholesterol. She states in the past she tried medication for cholesterol from cardiology and does not tolerate. Declines any treatment. Pysch: Follows closely with behavioral health as she is managed with clonazepam, temazepam and fluoxetine. No SI / HI. Neuro: States that 3 weeks ago she developed an exacerbation of her frequent headaches. She states that it felt like it was on her temples and like her temples were going to explode. She says that she was worried about a stroke. She went to the ER and they did do a head CT which was negative. No ER notes available. This was at [facility]. She states that she did have an elevated blood pressure at this time as well and they thought that she was a little too fixated on her blood pressure. She states that she had a fuzzy feeling in her head in a tingly feeling throughout her scalp. She does get frequent headaches and over the last year has been a bit more exacerbated. She does need to have an eye exam and states that she is going to book this. She believes that she is well hydrated. No change in medicines so she does not know why she would have an increase in headaches. She says that she has had a lot of head traumas in her life and would like to see a neurologist. Nothing recently. Low-dose chest CT: Previously ordered. She acknowledges a history of smoking approximately a pack per day over 24 years. Has tried chantix in the past. She is seeing [facility] 11/01/24. Missed her previous appointment. Mammogram: Following with breast center and up-to-date- The patient also follows up on her risk for breast cancer, recalling her past treatment with tamoxifen and a breast neoplasm that was atypical. 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 Follows with Dr. Akers Bone density: 08/04 and WNL [facility] Medical History (Updated 09/12/24 @ 11:41 by Leigh Shannon PA-C) POTS (postural orthostatic tachycardia syndrome) Orthostatic hypotension Generalized anxiety disorder with panic attacks Major depression, chronic Nicotine dependence, cigarettes, uncomplicated Surgical History (Updated 07/08/24 @ 14:15 by Lilia Hurtado PA-C) History of colposcopy History of colonoscopy S/P insertion of spinal cord stimulator History of thumb surgery History of fusion of cervical spine History of lumbar fusion Family History (Updated 09/02/24 @ 10:57 by Lilia Hurtado PA-C) Mother Pancreatic cancer Maternal Aunt Lung cancer Maternal Aunt Breast cancer Maternal Grandmother Colon cancer Social History Housing: Apartment Patient Tobacco Use Status: Current someday Tobacco user (10 cigarettes a week) Years Smoked: 24 e-Cigarette/Vaping Use: Never Used Second Hand Smoke Exposure: Yes service: No Current occupational status: disabled Cognitive needs: No Hearing needs: No Vision needs: Yes (used to wear glasses, needs eyes checked.) Questionnaire Thrive Questionnaire Date Thrive assessed: 05/02/24 I am a: Patient What is your living situation today?: I have a place to live, but I am worried about losing it in the future Within the past 12 months, did the food you bought not last and you didn't have the money to get more?: Sometimes True Within the past 12 months, did you worry whether your food would run out before you got money to buy more?: Sometimes True Do you have trouble paying for medicines?: No Do you have trouble getting transportation to medical appointments?: No Do you have trouble paying your heating and electricity bill?: No Do you have trouble taking care of your child, family member or friend?: No Do you have trouble with day-to-day activities such as bathing, preparing meals, shopping, managing finances, etc.?: No Are you currently unemployed and looking for a job?: No Are you interested in more education?: No Please select the resources that you would like help with: Daily support THRIVE Score: 3 AUDIT C Alcohol Use Questionnaire (AUDIT-C) 1. How often do you have a drink containing alcohol?: 2-4 times a month 2. How many drinks containing alcohol do you have on a typical day when you are drinking?: 3 or 4 3. How often do you have six or more drinks on one occasion?: Never Total Score: 3 Physical exam (Primary Care) Vital Signs: Last Vital Signs Pulse 72 09/12/24 11:09 Resp 12 09/12/24 11:09 BP 102/74 09/12/24 11:09 Pulse Ox 98 09/12/24 11:09 Oxygen Delivery Method Room Air 09/12/24 11:09 BMI result Body Mass Index 30.6 Tobacco/Smoking Status: Tobacco use Status Tobacco use date assessed 09/12/24 09/12/24 11:12 Patient Tobacco Use Status Current someday Tobacco (10 09/12/24 11:04 cigarettes a week) e-Cigarette/Vaping Use Never Used 09/12/24 11:04 Thrive Assessment: Date of Thrive Assessment Date Thrive assessed 05/02/24 09/12/24 11:04 Const Orientation/consciousness: patient oriented x3 HENMT Ears: hearing grossly normal bilaterally Neck Thyroid: Thyroid normal Lymphatic: no lymphadenopathy noted Resp Auscultation: clear to auscultation bilaterally Cardio Rate: regular rate Rhythm: regular rhythm Heart sounds: S1 normal heart sound present and S2 normal heart sound present GI Inspection: Yes normal to inspection Palpation (GI): Soft to palpation and Other GI palpation findings present (nontender, no cva tenderness) Auscultation: normoactive bowel sounds Rectal Exam - Female: deferred Skin General skin exam: no rashes or lesions noted Neuro General: patient oriented x3, gait normal and no focal motor deficits Results Reviewed Results Reviewed: Laboratory Tests 06/06/24 11:37 Estimated GFR > 60 Fasting Glucose 91 Triglycerides 168 H Cholesterol 265 H LDL Cholesterol, Calc 141 H HDL Cholesterol 91 TSH 2.46 Coding Level of Care Code Est Pt Level 4 (39954) Complex EM visit Add On G2211 Diagnoses Generalized anxiety disorder with panic attacks F41.1; F41.0 Major depression, chronic F32.9 Dyslipidemia E78.5 Chronic neck pain M54.2; G89.29 Frequent headaches R51.9 Assessment & Plan Assessment & Plan (1) Generalized anxiety disorder with panic attacks: Code(s): F41.1 - Generalized anxiety disorder; F41.0 - Panic disorder [episodic paroxysmal anxiety] Category: Medical Plan: stable with current treatment plan (2) Major depression, chronic: Code(s): F32.9 - Major depressive disorder, single episode, unspecified Category: Medical Plan: see above (3) Dyslipidemia: Code(s): E78.5 - Hyperlipidemia, unspecified Category: Medical Plan: declines treatment wants to work on diet we will recheck (4) Chronic neck pain: Code(s): M54.2 - Cervicalgia; G89.29 - Other chronic pain Category: Medical Plan: stable (5) Frequent headaches: Code(s): R51.9 - Headache, unspecified Category: Medical Plan: MRI ordered. Referral to Neurology Orders: Orders Lipid Panel Today E78.5 - Hyperlipidemia, unspecified MR head/brain wo con Today R51.9 - Headache, unspecified Referrals Neurology Referral R51.9 - Headache, unspecified
[2024-09-12 11:09] VITALS: BP 102/74; PULSE 72; RESP 12; O2SAT 98; BMI 30.6
--- OUTSIDE RECORDS SUMMARY | 2024-09-12 11:44 | XMS_ITS | Data Portability ---
Author Organization [place] - [facility], Allergy Address [address] [facility] [address] [place] [address] Care Team Providers Care Perioperative Manager Name Role Phone MARY KELLEY OTHER Assessment [...] to read at home, which gives a [id number] discussion on what causes migraine and how [...] Patient will continue to follow-up with her pin worker for her POTS syndrome. Follow up: As needed [id number] Not available 07/04/2024 14:46:30 Plan of Treatment [...] Address Organization Details Recorded Time Bilateral tinnitus 7087681028449 Active 2024 Raquel brenner [place] - [facility] 14:02:01 Tinnitus of left ear 2431535439265 Active 2024 Raquel brenner [place] - [facility] 14:02:01 Tinnitus of right ear 8224721475199 Active 2024 Raquel brenner [place] - [facility] [place] 14:02:01 Dizziness and giddiness 830510744 Active 2024 Raquel brenner [place] - [facility] [place] 14:02:09 Sensorineur al hearing loss of bilateral ears 302793913 Active 2024 Raquel brenner [place] - [facility] 14:02:15 Abnormal auditory perception 04308351 Active 2024 Raquel brenner [place] - [facility] [place] 14:02:43 Migraine with aura 8888196 Active 2024 NADJA GLASER MD [address] [place] [address], [id number] [facility] [place] - [facility] [place] 5 14:39:16 Vertigo of central origin 15872494 Active 2024 NADJA GLASER MD [address], [address] [facility] - [facility] 14:39:16 Problem Notes None recorded. Procedures Surgical History Date Name Laterality Status Provider Name and Address Organization Details Recorded Time 07/05/19 25 Comp Audio with Tymps - 84914 & 94367 completed Raquel Lara [place] - [facility] 07/04/2024 14:02:00 biopsy of breast completed Nay Dennis [facility] 07/04/2024 14:15:00 Cervical laminoplsty 2/> seg completed Nay Dennis [place] [facility] 07/04/2024 14:15:25 loop electrosurgical excision procedure completed Nay Dennis [place] [facility] 07/04/2024 14:15:35 discectomy of spine completed Nay Dennis [facility] 07/04/2024 14:15:44 Oral surgery procedure completed Nay Dennis [place] [facility] 07/04/2024 14:15:55 Tonsillectomy completed Nay Dennis [facility] 07/04/2024 14:16:10 Imaging Results None recorded. Procedure Notes None recorded. Medical Equipment None Reported. Allergies Allergen ID Allergen Name Allergen Category Reaction Reaction Severity Criticality Documentation Date Start Date Code Code System Note Provider Name and Address Organization Details Recorded Time 235520 erythromy cecy medicatio n Not available Not available Not available 07/04/2024 4053 RxNorm Nay brenner [facility] 14:14:08 303725 gabapenti n medicatio n Not available Not available Not available 07/04/2024 64713 RxNorm Nay brenner [place] - [facility] 14:14:15 541121 topiramat e medicatio n Not available Not available Not available 07/04/2024 94495 RxNorm Nay brenner [facility] 14:14:21 Medications Name Sig Start Date Stop [...] Details Last Updated DateTime 07/04/2024 170.18 cm 84889.12 g Nay Dennis [place] - [facility] 07/04/2024 14:20:37 Social History None recorded. Functional [...] SNOMED-CT Code Diagnosis ICD10 Code Diagnosis Note [id number] NADJA GLASER MD [facility] [address] [address] 07/04/2024 13:18:41 07/04/2024 16:03:42 Vertigo of central origin 28433335 H81.4 Migraine with aura 35316 06 G43.109 [id number] ZENA PARIS MA, CCC-A [facility] [address] [address] 07/04/2024 14:01:43 07/05/2024 08:23:30 Abnormal auditory perception 57452515 H93.299 Audiologic al evaluation results: Right ear: Normal hearing with excellent word recognitio n. Left ear: Normal hearing with excellent word recognitio n. Tympanomet ry: Right Ear:Type A Left Ear:Type A Health Concerns Section Related Observation LastModified by Organization Detai ls LastModified Time None Recorded Concern Status LastModified by Organization Details LastModified Time None Recorded Advance Directives Directive None Recorded Payers Insurance Date Sequence Insurance Name Policy Number Policy Dash Covered Member ID Dash Member ID Guarantor Name 07/04/2024 2 [place] [facility] Sylvia Leung [id number] Sylvia Leung 07/04/2024 1 MEDICARE B-[place] [facility] Sylvia Leung [id number] Sylvia Leung Notes Date Note Type Note Provider Name and Address Organization Details Recorded Time 07/04/2024 text/html 58-year-old fema le with fibromyalgia and multiple orthopedic/spine surgeries comes in for evaluation of balance. She has history of neuropathic pain of her lower extremities. Patient referred by her pin worker for assessment to see if any of [...] a minute or 2. NADJA GLASER MD [address] [place] [address], [phone], [place] - [facility] 07/04/2024 14:46:43 OBGyn Episode No OBEpisode recorded.
--- OUTSIDE RECORDS SUMMARY | 2024-09-12 11:44 | XMS_ITS | Clinical Summary ---
Author Organization [employer] [facility] ity Address [address] [place] [address] Care Team Providers Care Import/Export Specialist Name Role Phone Fred Falcon MD Primary Care Provider [phone] Social History Tobacco Use Types Packs/Day Years [...] age to complete this topic Care Teams Import/Export Specialist Relationship Specialty Start Date End Date Fred Falcon MD PCP - General Internal Medicine 05/11/20
--- OUTSIDE RECORDS SUMMARY | 2024-09-12 11:45 | XMS_ITS | Clinical Summary ---
Author Organization [facility] Address [address] [place] [address] Care Team Providers Care Social Work Specialist Name Role Phone Miriam Falcon MD Primary [...] Vaccine ( - season) 2023 Care Teams Social Work Specialist Relationship Specialty Start Date End Date Miriam Falcon MD PCP - General Medicine Hospitalist 04/13/23
--- OUTSIDE RECORDS SUMMARY | 2024-09-12 11:45 | XMS_ITS ---
Author Name [facility] Organization Unknown Problems Problem Status Onset Date Problem Type Date of Resoluti on Source POTS (postural orthostatic tachycardia syndrome) active EncounterDiagnosisAct CCT Care Team Organization Name Specialty Phone Email Start Date End Da zion [facility] YARELI VILLEDA Primary Care 04/13/2023
== END 2024-09-12 11:46 | disposition home or self-care (01) ==
LOC: HO.HMCFM 10:56
PROVIDERS: PCP Physician Assistant; Visit Provider Physician Assistant
DX: F41.1 Generalized anxiety disorder (principal); F41.0 Panic disorder [episodic paroxysmal anxiety]; F32.9 Major depressive disorder, single episode, unspecified; E78.5 Hyperlipidemia, unspecified; M54.2 Cervicalgia; G89.29 Other chronic pain; R51.9 Headache, unspecified

== ENCOUNTER → 2024-09-12 10:55 | Outpatient (BNVA) | payer MEDICARE, MEDICAID, SELFPAY | PROVIDERS: PCP Physician Assistant; Visit Provider Physician Assistant | DX: F41.1 Generalized anxiety disorder (principal); F41.0 Panic disorder [episodic paroxysmal anxiety]; F32.9 Major depressive disorder, single episode, unspecified; E78.5 Hyperlipidemia, unspecified; M54.2 Cervicalgia; G89.29 Other chronic pain; R51.9 Headache, unspecified | CPT/HCPCS: 99212 ==

== ENCOUNTER 2024-10-14 10:55 | Outpatient (REF) | payer MEDICARE, MEDICAID, SELFPAY ==
--- NOTE | 2024-10-14 | EMG_ITS ---
Please see the attached neurophysiology report MTDD
--- OUTSIDE RECORDS SUMMARY | 2024-10-14 11:54 | XMS_ITS | Clinical Summary ---
Author Organization [facility] Address [address] [place] [address] Care Team Providers Care Health Diagnostics Teacher Name Role Phone Miriam Falcon MD Primary [...] Vaccine ( - season) 2023 Care Teams Health Diagnostics Teacher Relationship Specialty Start Date End Date Miriam Falcon MD PCP - General Medicine Hospitalist 04/13/23
--- OUTSIDE RECORDS SUMMARY | 2024-10-14 11:54 | XMS_ITS | Clinical Summary ---
Author Organization [facility] ity Address [address] [place] [address] Care Team Providers Care Advertiser Name Role Phone Fred Falcon MD Primary Care Provider [phone] Social History Tobacco Use Types Packs/Day Years [...] 2) 07/31/2017 Colorectal Cancer Screening: Colonoscopy 02/09/2022 HIV Screening 02/09/2022 Hepatitis C Screening 02/09/2022 Social Influencers of Health Screening 02/09/2022 COVID-19 Vaccine (1 - 2023-2 5 season) 2023 Depression Screening 03/13/2024 Influenza Vaccine (#1) 2024 HIB Vaccines Aged Out No longer [...] age to complete this topic Care Teams Advertiser Relationship Specialty Start Date End Date Fred Falcon MD PCP - General Internal Medicine 05/11/20
== END 2024-10-14 10:56 | disposition home or self-care (01) ==
LOC: HO.NEURO 10:55
PROVIDERS: PCP Physician Assistant; Visit Provider Orthopaedic Surgery Hand Surgery
DX: S99.911A Unspecified injury of right ankle, initial encounter (principal); X50.1XXA Overexertion from prolonged static or awkward postures, initial encounter; W19.XXXA Unspecified fall, initial encounter; Y93.9 Activity, unspecified; Y92.9 Unspecified place or not applicable; Y99.9 Unspecified external cause status
CPT/HCPCS: 95886; 95910

== ENCOUNTER → 2024-10-14 11:03 | Outpatient (BNV) | payer MEDICARE, MEDICAID, SELFPAY | PROVIDERS: PCP Physician Assistant; Visit Provider Psychiatry & Neurology Neurology | DX: G57.81 Other specified mononeuropathies of right lower limb (principal) | CPT/HCPCS: 95886; 95910 ==

== ENCOUNTER 2024-10-26 18:48 | Outpatient (REF) | payer MEDICARE, MEDICAID, SELFPAY ==
--- NOTE | ~2024-10-26 | MR_ITS ---
CLINICAL HISTORY: R51.9 - Headache, unspecified MR Brain without gadolinium Comparison: None provided Findings: No restricted diffusion. No intra-axial mass or hemorrhage. No midline shift. No hydrocephalus. Vascular flow voids are intact. Orbital contents are unremarkable. The sinuses and mastoid air cells are clear. No focal bone lesion. IMPRESSION: No acute findings. This document has been electronically signed by: Sendy Almodovar MD on 10/28/2024 15:39:55
== END 2024-10-26 18:49 | disposition home or self-care (01) ==
LOC: HO.MRI 18:48
PROVIDERS: PCP Physician Assistant; Visit Provider Physician Assistant
DX: R51.9 Headache, unspecified (principal)
CPT/HCPCS: 70551

== ENCOUNTER → 2024-10-26 18:48 | Outpatient (BNV) | payer MEDICARE, MEDICAID, SELFPAY | PROVIDERS: PCP Physician Assistant; Visit Provider Radiology Diagnostic Radiology | DX: R51.9 Headache, unspecified (principal) | CPT/HCPCS: 70551 ==

== ENCOUNTER 2024-12-18 11:07 | Outpatient (AMB) | payer MEDICARE, MEDICAID, SELFPAY ==
[2024-12-18 11:16] VITALS: BP 104/62; PULSE 72; RESP 12; TEMP 36.8; O2SAT 98; BMI 29.7
--- NOTE | 2024-12-18 11:16 | A.OFFPC_ITS ---
Vital Signs 12/18/24 11:16 Height 4 ft 9.6 in Weight 140 lb 4 oz BMI 29.7 BP 104/62 Blood Pressure Location Lt brachial Position Sitting Respiration 12 Pulse 72 Pulse Source Pulse Oximeter Temp 98.3 F Temp Source Oral Pulse Oximetry (%) 98 Oxygen Delivery Method Room Air Intake Visit Reasons: 3mos follow up Intake Note: Three month follow up. Has been sick for 2 weeks. Cough, congestion, fever, chills, fatigue on and off. Today is the first day sxs subsided. 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: No Allergies gabapentin Allergy (Severe, Verified 12/18/24 11:16) forgetful topiramate Allergy (Severe, Verified 12/18/24 11:16) metabolic acidosis erythromycin base Allergy (Mild, Verified 12/18/24 11:16) Hives Medication List - Last Reconciled 12/18/24 by Leigh Shannon PA-C acetaminophen (Tylenol) 325 mg PO QID PRN clonazepam mg PO TID diphenhydramine HCl (Benadryl) 25 mg PO BID PRN fluoxetine 60 mg PO DAILY hydrocodone-acetaminophen 10-325 mg 1 tab PO Q8H PRN 28 days ibuprofen 200 mg PO Q6H PRN melatonin 3 mg PO BEDTIME PRN sucralfate 1 g PO QID PRN temazepam mg PO BEDTIME Tobacco use date assessed: 12/18/24 Dental Screening Dental Screen Date: 05/09/24 HPI 3mos follow up HPI Details The patient is a 59-year-old female presenting today for a follow up. HEENT: Started with flu like sx a few weeks ago and it feels like everything is getting better but she does somewhat have a cough. This is also significantly improved. Musculoskeletal: -She had an emg that showed peroneal nerve intrapment. Dr. Bhatia will be doing surgery on right knee 12/25 The patient has a complex history of chronic pain beginning in 2007 following major back surgery resulting in lumbar fusion. Subsequent surgeries include cervical fusion and surgeries on both thumbs with persistent osteoarthritis pain. She also had a spinal cord stimulator placed one year after her back surgery, and she reports a history of fibromyalgia. The patient had been maintained on [place] (hydrocodone/acetaminophen 10/325 mg) for pain 4 times a day, previously prescribed by Dr. Falcon, but she has been off this medication since March. The pain is significant, impacting daily living activities such as folding clothes and washing dishes, and is exacerbated by physical activity. GI: Reports a history of IBS and gerd and follows with Dr. Akers CV: has a history of POTS and orthostatic hypotension. Follows with Dr. Hdez. Last labs showed elevated cholesterol. She states in the past she tried medication for cholesterol from cardiology and does not tolerate. Declines any treatment. Pysch: Follows closely with behavioral health as she is managed with clonazepam, temazepam and fluoxetine. No SI / HI. Neuro: States that head She states that it felt like it was on her temples and like her temples were going to explode. She says that she was worried about a stroke. She went to the ER and they did do a head CT which was negative. She states that she had a fuzzy feeling in her head in a tingly feeling throughout her scalp. She does get frequent headaches and over the last year has been a bit more exacerbated. She has been referred to neuro. Had a reassuring MRI. Low-dose chest CT: Previously ordered. She acknowledges a history of smoking approximately a pack per day over 24 years. Has tried chantix in the past. She is seeing pul 11/01/24. Missed her previous appointment. Mammogram: Following with breast center and up-to-date- The patient also follows up on her risk for breast cancer, recalling her past treatment with tamoxifen and a breast neoplasm that was atypical. obstetrics gyn: Follows closely with [facility] colonoscopy: Completed in January 2024 and states WNL. Follows with Dr. Akers Bone density: 08/04 and [facility] Medical History (Updated 12/18/24 @ 11:45 by Leigh Shannon PA-C) POTS (postural orthostatic tachycardia syndrome) Orthostatic hypotension Generalized anxiety disorder with panic attacks Major depression, chronic Nicotine dependence, cigarettes, uncomplicated Surgical History History of colposcopy History of colonoscopy S/P insertion of spinal cord stimulator History of thumb surgery History of fusion of cervical spine History of lumbar fusion Family History Mother Pancreatic cancer Maternal Aunt Lung cancer Maternal Aunt Breast cancer Maternal Grandmother Colon cancer Social History Housing: Apartment Patient Tobacco Use Status: Current someday Tobacco user (10 cigarettes a week) Years Smoked: 24 e-Cigarette/Vaping Use: Never Used Second Hand Smoke Exposure: Yes service: No Current occupational status: disabled Cognitive needs: No Hearing needs: No Vision needs: Yes (used to wear glasses, needs eyes checked.) Questionnaire Thrive Questionnaire Date Thrive assessed: 05/02/24 I am a: Patient What is your living situation today?: I have a place to live, but I am worried about losing it in the future Within the past 12 months, did the food you bought not last and you didn't have the money to get more?: Sometimes True Within the past 12 months, did you worry whether your food would run out before you got money to buy more?: Sometimes True Do you have trouble paying for medicines?: No Do you have trouble getting transportation to medical appointments?: No Do you have trouble paying your heating and electricity bill?: No Do you have trouble taking care of your child, family member or friend?: No Do you have trouble with day-to-day activities such as bathing, preparing meals, shopping, managing finances, etc.?: No Are you currently unemployed and looking for a job?: No Are you interested in more education?: No Please select the resources that you would like help with: Daily support THRIVE Score: 3 Physical exam (Primary Care) Vital Signs: Last Vital Signs Temp 98.3 F 12/18/24 11:16 Pulse 72 12/18/24 11:16 Resp 12 12/18/24 11:16 BP 104/62 12/18/24 11:16 Pulse Ox 98 12/18/24 11:16 Oxygen Delivery Method Room Air 12/18/24 11:16 BMI result Body Mass Index 29.7 Tobacco/Smoking Status: Tobacco use Status Tobacco use date assessed 12/18/24 12/18/24 11:21 Patient Tobacco Use Status Current someday Tobacco (10 12/18/24 11:21 cigarettes a week) e-Cigarette/Vaping Use Never Used 12/18/24 11:21 Thrive Assessment: Date of Thrive Assessment Date Thrive assessed 05/02/24 12/18/24 11:21 Const Orientation/consciousness: patient oriented x3 HENMT Ears: hearing grossly normal bilaterally Neck Thyroid: Thyroid normal Lymphatic: no lymphadenopathy noted Resp Auscultation: clear to auscultation bilaterally Cardio Rate: regular rate Rhythm: regular rhythm Heart sounds: S1 normal heart sound present and S2 normal heart sound present GI Inspection: Yes normal to inspection Palpation (GI): Soft to palpation and Other GI palpation findings present (nontender, no cva tenderness) Auscultation: normoactive bowel sounds Rectal Exam - Female: deferred Skin General skin exam: no rashes or lesions noted Neuro General: patient oriented x3, gait normal and no focal motor deficits Results Reviewed Results Reviewed: MR Brain without gadolinium Comparison: None provided Findings: No restricted diffusion. No intra-axial mass or hemorrhage. No midline shift. No hydrocephalus. Vascular flow voids are intact. Orbital contents are unremarkable. The sinuses and mastoid air cells are clear. No focal bone lesion. IMPRESSION: No acute findings. This document has been electronically signed by: Sendy Almodovar MD on 10/28/2024 15:39:5 Coding Level of Care Code Est Pt Level 4 (14778) Complex EM visit Add On G2211 Diagnoses Viral URI with cough J06.9 Chronic low back pain M54.50; G89.29 Frequent headaches R51.9 Assessment & Plan Assessment & Plan (1) Viral URI with cough: Code(s): J06.9 - Acute upper respiratory infection, unspecified Category: Medical Plan: Symptoms have mostly resolved. Chest x-ray ordered. Lung sound clear today. She will let me know if anything worsens or changes. (2) Chronic low back pain: Code(s): M54.50 - Low back pain, unspecified; G89.29 - Other chronic pain Category: Medical Plan: Controlled with current regimen (3) Frequent headaches: Code(s): R51.9 - Headache, unspecified Category: Medical Plan: Has a follow up scheduled with Neurology. Reviewed MRI patient Orders: Orders XR chest 2V 12/18/24 J06.9 - Acute upper respiratory infection, unspecified
== END 2024-12-18 11:57 | disposition home or self-care (01) ==
LOC: HO.HMCFM 11:08
PROVIDERS: PCP Physician Assistant; Visit Provider Physician Assistant
DX: J06.9 Acute upper respiratory infection, unspecified (principal); M54.50 Low back pain, unspecified; G89.29 Other chronic pain; R51.9 Headache, unspecified

== ENCOUNTER → 2024-12-18 11:07 | Outpatient (BNVA) | payer MEDICARE, MEDICAID, SELFPAY | PROVIDERS: PCP Physician Assistant; Visit Provider Physician Assistant | DX: G89.29 Other chronic pain (principal); J06.9 Acute upper respiratory infection, unspecified; M54.50 Low back pain, unspecified; R51.9 Headache, unspecified; F17.210 Nicotine dependence, cigarettes, uncomplicated | CPT/HCPCS: 99212 ==